=== PATIENT | male | born 1975 | race Caucasian/White ===

== ENCOUNTER 2021-09-25 07:34 | Observation (INO) ==
[2021-09-25 07:46] VITALS: TEMP 98.2
[2021-09-25] MEDS ORDERED: 0.9 % Sodium Chloride 1,000 ML IVC ONE (07:47)
[2021-09-25 08:06] LABS: Basophils # 0.1 K/mcL (0.0-0.2); Basophils % 0.3 %; Eosinophils % 0.1 %; Hemoglobin 17.4 g/dL (12.9-16.9); Immature Granulocytes % 0.6 % (0-4); Lymphocytes # 1.7 K/mcL (0.6-4.6); Lymphocytes % 11.1 %; Mean Corpuscular HGB Conc 34.1 g/dL (31.6-35.5); Mean Corpuscular Hemoglobin 27.1 pg (28.0-33.3); Mean Corpuscular Volume 79.6 fL (83.0-100.0); Mean Platelet Volume 9.6 fL (9.4-12.4); Monocytes % 6.2 %; Neutrophils # 12.7 K/mcL (1.6-8.9); Platelet Count 183 K/mcL (140-400); Red Blood Count 6.41 M/mcL (4.19-5.50); Segmented Neutrophils % 81.7 %; White Blood Count 15.5 K/mcL (4.3-11.1)
[2021-09-25 08:16] LABS: Prothrombin Time 11.3 Seconds (9.4-12.1)
[2021-09-25 08:18] LABS: Activated Partial Thrombo Time 29.5 Seconds (26.0-36.0)
[2021-09-25] MEDS ORDERED: levoFLOXacin 750 MG/150 ML 750 MG/150 ML BAG IVPB STA (08:32)
[2021-09-25 08:35] LABS: BUN/Creatinine Ratio 19 (6-26); Blood Urea Nitrogen 27 mg/dL (6-20); Calcium 9.2 mg/dL (8.6-10.3); Carbon Dioxide 20 mEq/L (23-29); Chloride 96 mEq/L (98-107); Glucose 545 mg/dL (70-105); Osmolality,Calculated 296 (280-300); Sodium 128 mEq/L (136-145); eGFR For African Americans > 60 (> 60); eGFR For Non-African Americans 55 (> 60)
[2021-09-25] MEDS ORDERED: Insulin Human Regular 10 UNIT in 0.9 % Sodium Chloride 10 ML IV ONE ×2 (08:47→10:02)
[2021-09-25] MEDS ORDERED: 0.9 % Sodium Chloride 1,000 ML IV ONE (08:47)
[2021-09-25] MEDS ORDERED: levoFLOXacin 750 MG/150 ML 750 MG/150 ML BAG IVPB SCH (09:00)
[2021-09-25 09:04] LABS: VBG HCO3 21 mEq/L (21-27); VBG PCO2 34 mmHg (41-51); VBG PO2 73 mmHg (25-50)
[2021-09-25] MEDS ORDERED: Morphine Sulfate 2 MG/ML SYRINGE IVP ONE (09:04)
[2021-09-25] MEDS ORDERED: Ondansetron 4 MG/2 ML VIAL IVP ONE (09:04)
[2021-09-25 09:43] LABS: Bilirubin,Urine Negative (Negative); Blood,Urine Small (Negative); Clarity,Urine Clear (Clear); Color,Urine Yellow (Yellow); Glucose,Urine (UA) 500 mg/dL (Normal); Ketones,Urine Trace mg/dL (Negative); Leukocyte Esterase,Urine Negative (Negative); Nitrite,Urine Negative (Negative); Protein,Urine 30 mg/dL (Neg-Trace); Urobilinogen,Urine Normal (Normal)
[2021-09-25 09:49] LABS: RBC,Urine 0-3 per hpf (0-3)
[2021-09-25] MEDS ORDERED: Ondansetron 4 MG/2 ML VIAL IVP PRN (10:48)
[2021-09-25] MEDS ORDERED: Mag Hydrox/Al Hydrox/Simeth 30 ML UDC PO PRN (10:48)
[2021-09-25] MEDS ORDERED: MOM Conc 10 ML UD.LIQ PO PRN (10:48)
[2021-09-25] MEDS ORDERED: Acetaminophen 325 MG TABLET PO PRN (10:48)
[2021-09-25] MEDS ORDERED: Naloxone 0.4 MG/ML INJ IVP PRN (10:48)
[2021-09-25] MEDS ORDERED: D5% in Water 1,000 ML IVC PRN (10:53)
[2021-09-25] MEDS ORDERED: *HR* Dextrose 50 % in Water (Syg) 50 ML SYRINGE IVP PRN (10:53)
[2021-09-25] MEDS ORDERED: Dextrose 4 GM Chewable Tablets PO PRN ×2 (10:53)
[2021-09-25 10:56] VITALS: BP 139/88; PULSE 118; RESP 20; O2SAT 94
[2021-09-25] MEDS ORDERED: polyethylene glycoL 3350 17 GM POWD.PACK PO SCH (10:56)
[2021-09-25] MEDS ORDERED: 0.9 % Sodium Chloride 1,000 ML IVC SCH (11:00)
[2021-09-25] MEDS ORDERED: Insulin LISPRO 300 UNITS/3 ML VIAL SUBQ SCH (11:00)
[2021-09-25] MEDS ORDERED: Nicotine 21 MG PATCH.TD24 TD SCH (11:05)
[2021-09-25] MEDS ORDERED: Lidocaine 5% OINT 35 APPL/35.44 GM TUBE TP PRN (12:18)
[2021-09-25] MEDS ORDERED: amLODIPine 5 MG TABLET PO SCH (12:28)
[2021-09-25 12:29] LABS: BUN/Creatinine Ratio 20 (6-26); Blood Urea Nitrogen 24 mg/dL (6-20); Calcium 8.5 mg/dL (8.6-10.3); Carbon Dioxide 22 mEq/L (23-29); Chloride 99 mEq/L (98-107); Glucose 386 mg/dL (70-105); Osmolality,Calculated 292 (280-300); Sodium 131 mEq/L (136-145); eGFR For African Americans > 60 (> 60); eGFR For Non-African Americans > 60 (> 60)
[2021-09-25] MEDS ORDERED: *HR* Metformin 500 MG TABLET PO SCH (17:00)
[2021-09-25] MEDS ORDERED: Insulin DETEMIR 100 UNIT/ML X5UNITS SUBQ SCH (21:00)
[2021-09-26] MEDS ORDERED: GlipiZIDE 5 MG TABLET PO SCH (08:00)
== END 2021-09-25 13:40 | disposition left against medical advice (07) ==
LOC: EMEROOPIK 07:34 → INPPIK 07:34
PROVIDERS: ADMIT Registered Nurse Emergency; ATTEND Registered Nurse Emergency